=== PATIENT | female | born 2005 | race Caucasian/White ===

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

== ENCOUNTER 2023-02-24 09:39 | Emergency (ER) | payer SELFPAY ==
[~2023-02-24] VITALS: Ht 170 cm; Wt 90.7 kg
[~2023-02-24 09:39] MED LIST changes: -FLUO10CA31; +FLUO10CA33; +PRD50T PO
[2023-02-24] MEDS ORDERED: CYCL10TA25 PO (09:57)
[2023-02-24] MEDS ORDERED: LIDO700A45 TP (09:57)
[2023-02-24] MEDS ORDERED: KETO10TA PO (09:57)
--- NOTE | 2023-02-24 09:58 | ED Back Pain ---
General Chief Complaint: Back Problems Stated Complaint: LOWER BACK PAIN Source of Information: Patient Exam Limitations: No Limitations History of Present Illness Date Seen by Provider: Feb 24, 2023 Time Seen by Provider: 09:40 Initial Comments 17-year-old female with no pertinent past medical history coming in due to low back pain. She was sitting in bed getting ready to get up, twisted to get out of bed, felt a pop and pain in her right lower back. No weakness or numbness associated with this and she has been ambulating. She has not fallen or had any significant trauma. This is never happened before. Denies taking any medicines today. Otherwise denying any other acute complaints including no dysuria, u rinary frequency, hematuria, nausea, fever, no bowel or bladder dysfunction. Allergies and Home Medications Allergies Coded Allergies: No Known Drug Allergies (Unverified , 06/01/10) Patient Home Medication List Home Medication List Reviewed: Yes Cetirizine HCl (Cetirizine HCl) 10 Mg Tablet, (Reported) Entered as Reported by: GIORGIO JACKMAN on 11/04/182222 Fluoxetine HCl (Fluoxetine HCl) 10 Mg Capsule, (Reported) Entered as Reported by: JOEL OCHOA on 03/18/171943 Fluticasone Propionate (Fluticasone Propionate) 16 Gm [place].susp, (Reported) Entered as Reported by: GIORGIO JACKMAN on 11/04/182222 Medroxyprogesterone Acetate (Depo-Provera) 150 Mg/1 Ml Syringe, 150 MG IM, (Reported) Entered as Reported by: GIORGIO JACKMAN on 11/04/182222 Methylphenidate HCl (Methylphenidate ER) 36 Mg Tab.er.24, (Reported) Entered as Reported by: JOEL OCHOA on 03/18/171943 Prednisone (Prednisone) 50 Mg Tab, 50 MG PO DAILY Prescribed by: RICHAR INGRAM on 04/20/21 0144 Review of Systems Constitutional: No fever EENTM: no symptoms reported Respiratory: no symptoms reported Cardiovascular: no symptoms reported Gastrointestinal: no symptoms reported Genitourinary: no symptoms reported Musculoskeletal: see HPI Skin: no symptoms reported Psychiatric/Neurological: No Symptoms Reported Past Gtbwsrg-Vcppnj-Qozdum Hx Immunizations Up To Date Tetanus Booster (TDap): Less than 5yrs Seasonal Allergies Seasonal Allergies: Yes Past Medical History Surgeries: No Respiratory: No Cardiac: No Neurological: No Sexually Transmitted Disease: No Genitourinary: No Gastrointestinal: No Musculoskeletal: No Endocrine: No HEENT: No Cancer: No Psychosocial: Yes (ANXIETY/PANIC ATTACKS/HYPERVENTILATION-- per previous medical hx) ADD/ADHD, Anxiety, PTSD, Depression Integumentary: No Blood Disorders: No Adverse Reaction/Blood Tranf: No Family Medical History No Pertinent Family Hx Physical Exam Vital Signs Capillary Refill : Height, Weight, BMI Height: 5'7.00" Weight: 205lbs. 0oz. 92.793267zp; 34.00 BMI Method:Stated General Appearance: WD/WN, Mild Distress HEENT: PERRL/EOMI, Normal ENT Inspection, Pharynx Normal Neck: Full Range of Motion, Normal Inspection, Non Tender, Supple Cardiovascular: Regular Rate, Rhythm, No Edema, Normal Peripheral Pulses Respiratory: Chest Non Tender, Lungs Clear, Normal Breath Sounds, No Accessory Muscle Use, No Respiratory Distress Gastrointestinal: Non Tender Back: Normal Inspection, No CVA Tenderness, No Vertebral Tenderness, Other (Right lower paraspinal tenderness, negative straight leg test) Extremity: Normal Capillary Refill, Normal Inspection, Normal Range of Motion, Non Tender, No Calf Tenderness, No Pedal Edema Neurologic/Psychiatric: Alert, No Motor/Sensory Deficits, Normal Mood/Affect, Other (Normal gait) Skin: Normal Color, Warm/Dry Progress/Results/Core Measures Results/Orders My Orders Orders - ANGELIA MERRILL MD Urine Bedside (02/24/23 09:42) Ua Culture If Indicated (02/24/23 09:42) Progress Progress Note : Progress Note 17-year-old female coming in after she twisted and now has right lower back pain acutely. ABCs intact and vitals were stable on presentation. Physical exam reassuring, feels more like a muscle spasm on exam with no red flags clinically. No imaging indicated at this time. We will give her IM injection for discomfort and sent a prescription. I will have her follow-up with her PCP as an outpatient if she is not showing improvement. test obtained and was negative. Urinalysis initially sent due to the right flank pain, however on further evaluation this does not clinically seem consistent with pyelonephritis or ureterolithiasis. Departure Impression Primary Impression: Back spasm Disposition: 01 HOME, SELF-CARE Condition: Stable Departure-Patient Inst. Decision time for Depature: 10:00 Referrals: [facility] (PCP/Family) Primary Care Physician Patient Instructions: Muscle Spasm ED Add. Discharge Instructions: This appears to be a back spasm with a strain of the muscles in the back. This can typically take a couple weeks to get better. Try to use your core when m oving around as much as possible. Do some gentle stretching and twisting consistently throughout the day to help loosen this up. Ketorolac as well as cyclobenzaprine were sent to your pharmacy to help with the pain. Lidocaine patches were also sent. The ketorolac is like a prescription strength ibuprofen and the cyclobenzaprine is a muscle relaxer. This typically takes a couple weeks to improve. We also recommend using a heating pad liberally, careful not to burn yourself. Scripts Lidocaine (Lidocaine 5% Patch) 5 % Adh..patch 1 EACH TP Q12H PRN for Neuropathic pain MDD 2 for 14 Days, #28 PATCH 2 patches max for 12 hours, then 12 hours patch-free period. Prov: ANGELIA MERRILL MD 02/24/23 Cyclobenzaprine HCl (Cyclobenzaprine HCl) 10 Mg Tablet 10 MG PO Q8H PRN for SPASMS for 5 Days, #15 TAB 0 Refills Prov: ANGELIA MERRILL MD 02/24/23 Ketorolac Tromethamine (Ketorolac Tromethamine) 10 Mg Tablet 10 MG PO Q8H for 4 Days, #12 TAB Prov: ANGELIA MERRILL MD 02/24/23 Work/School Note: Family Work Note Patient Received Medical Care In the Emergency Department On: Feb 24, 2023 Patient Will Be Able to Return to Work/School On: Feb 25, 2023 ANGELIA MERRILL MD Feb 24, 2023 09:58
[2023-02-24] MEDS ORDERED: KETOROLAC INJ 15 MG/ML VIAL IM ONE (10:00)
[2023-02-24] MEDS ORDERED: HYDROcodone/ACETAMINOPHEN 5 MG/325 MG TABLET PO ONE (10:00)
[2023-02-24] MEDS ORDERED: ORPHENADRINE 60 MG/2 ML AMP (ED ONLY) IM ONE (10:00)
[2023-02-24 10:07] VITALS: BP 141/90
[2023-02-24 10:34] LABS: COLOR,URINE BROWN
[2023-02-24 10:35] LABS: BACTERIA,URINE NEGATIVE /HPF; CLARITY,URINE SL CLOUDY; GLUCOSE, URINE (UA) NEGATIVE (NEGATIVE); KETONES,URINE NEGATIVE (NEGATIVE); LEUKOCYTE ESTERASE ,URINE NEGATIVE (NEGATIVE); NITRITE,URINE NEGATIVE (NEGATIVE); PROTEIN,URINE 2+ (NEGATIVE); RBC,URINE TNTC /HPF; SQUAMOUS EPITHELIAL CELL,UR RARE /HPF; WBC,URINE RARE /HPF
[2023-02-24 10:36] LABS: BILIRUBIN,URINE 1+ (NEGATIVE)
== END 2023-02-24 10:07 | disposition home or self-care (01) ==
LOC: EDUNIT# 09:39 → ER 09:42
DX: M62.830 Muscle spasm of back (principal)
CPT/HCPCS: 81000; 84703; 99284